=== PATIENT | female | born 1990 | race Caucasian/White ===

== ENCOUNTER 2016-07-13 08:14 | Inpatient (IN) | payer BC, MEDICAID, OTHER ==
[2016-07-05 10:57] VITALS: BMI 34.7
[2016-07-13] MEDS ORDERED: CITRIC ACID-SODIUM CITRATE 15 ML CUP PO ONE (08:28)
[2016-07-13] MEDS ORDERED: LACTATED RINGERS 1,000 ML IV ONE (08:28)
[2016-07-13] MEDS ORDERED: ceFAZolin 2 GM in SODIUM CHLORIDE 0.9% 100 ML IVPB ONE (08:28)
[2016-07-13 08:56] LABS: Basophils % (A) 0 %; CH 26.9; CHCM 33.6; Eosinophils # (A) 0.1 k/uL (0-0.7); Eosinophils % (A) 1 %; HCT 32.6 % (34.0-46.0); HDW 3.36; HGB 10.9 gm/dL (11.4-16.0); Luc # (Auto) 0.21; Luc % (Auto) 2; Lymphocytes # (A) 1.5 k/uL (1.0-4.8); Lymphocytes % (A) 15 %; MCH 26.9 pg (25.0-35.0); MCHC 33.3 g/dL (31.0-37.0); MCV 80.6 fL (80.0-100.0); Mean Platelet Volume 7.2; Monocytes # (A) 0.4 k/uL (0-1.0); Monocytes % (A) 4 %; Neutrophils # (A) 7.4 k/uL (1.3-7.7); Neutrophils % (A) 77 %; RBC 4.05 m/uL (3.80-5.40); RDW 14.7 % (11.5-15.5); WBC 9.7 k/uL (3.8-10.6); WBC (Perox) 10.76
[2016-07-13] MEDS ORDERED: OXYTOCIN 10 UNIT/ML 1 ML VIAL IM ONE (10:03)
[2016-07-13] MEDS ORDERED: MORPHINE SULFATE (PF) 0.3 MG/0.3 ML SYR ONE (10:03)
[2016-07-13] MEDS ORDERED: LACTATED RINGERS 1,000 ML BAG IV ONE (10:03)
[2016-07-13] MEDS ORDERED: NALBUPHINE 10 MG/ML AMPUL ONE (10:03)
[2016-07-13] MEDS ORDERED: Acetaminophen-Codeine 300-30mg TAB PO PRN (10:56)
[2016-07-13] MEDS ORDERED: diphenhydrAMINE 50 MG/ML 1 ML VIAL IVP PRN ×3 (10:56→16:05)
[2016-07-13] MEDS ORDERED: ACETAMINOPHEN TAB 325 MG TAB PO PRN (10:56)
[2016-07-13] MEDS ORDERED: METOCLOPRAMIDE 5 MG/ML 2 ML VIAL IVP PRN (10:56)
[2016-07-13] MEDS ORDERED: diphenhydrAMINE 50 MG CAP PO PRN (10:56)
[2016-07-13] MEDS ORDERED: SIMETHICONE 80 MG CHEWABLE PO PRN (10:56)
[2016-07-13] MEDS ORDERED: LANOLIN CREAM 5 GM TUBE TOPICAL PRN (10:56)
[2016-07-13] MEDS ORDERED: ZOLPIDEM 5 MG TAB PO PRN (10:56)
[2016-07-13] MEDS ORDERED: diphenhydrAMINE 25 MG CAP PO PRN (10:56)
--- NOTE | 2016-07-13 11:02 | P.HPOB ---
History of Present Illness H&P Date: 07/13/16 Chief Complaint: 39+ weeks, previous section, requesting repeat The patient is a 26-year-old 2 para 1001 admitted at 39 and one sevenths as established by last menstrual period and confirmed by 19 week ultrasound. She is admitted with history of her previous section requesting repeat low transverse section with intraoperative bilateral tubal occlusion with Filshie clips. She has signed consent to this in the office. Her has been entirely uncomplicated and group B strep status is negative. On admission, all signs reassuring. Obstetrical history 2 para 1001 with 1 term section for nonreassuring heart tones. Current statistics are listed in history present illness. EDC of 07/19/2016 was established by last menstrual period and confirmed by 19 week ultrasound. Laboratory workup demonstrates a blood type of A+ with a negative antibody screen. Rubella status is immune. All other laboratory workup was within normal limits. Early Glucola as well as second trimester Glucola were within normal limits. Group B strep status is negative. Gynecologic history is unremarkable with no history of any infections to include STDs. Review of Systems Review of systems is confined to history of present illness. Past Medical History Past Medical History: No Reported History Additional Past Medical History / Comment(s): Possible history of sleep apnea, unconfirmed History of Any Multi-Drug Resistant Organisms: None Reported Past Surgical History: Section, Cholecystectomy Additional Past Surgical History / Comment(s): Left eye surgery as a child x2, wisdom teeth extraction age 18 Past Anesthesia/Blood Transfusion Reactions: No Reported Reaction Past Psychological History: No Psychological Hx Reported Smoking Status: Never smoker Past Alcohol Use History: None Reported Past Drug Use History: None Reported - Past Family History Mother History Unknown: Yes Family Medical History: No Reported History Medications and Allergies Home Medications Medication Instructions Recorded Confirmed Type Pnv with Ca,No.72/Iron/FA 1 tab PO ONCE 05/30/16 07/05/16 History [ Plus Tablet] Allergies Allergy/AdvReac Type Severity Reaction Status Date / Time No Known Allergies Allergy Verified 07/05/16 10:49 Exam - Vital Signs Vital signs: Vital Signs Temp Pulse Resp BP Pulse Ox 07/13/16 08:19 97.2 F L 81 17 120/72 97 Intake and Output 07/12/16 07/13/16 07/13/16 22:59 06:59 14:59 Other: Weight 97.522 kg Patient Weight 07/14/16 06:59 Weight 97.522 kg In general, this is a well-developed, well-nourished white female in no acute distress. Her heart has a regular rhythm and rate without murmur. Her lungs are clear to auscultation bilaterally in all mauro. Her abdomen is gravid, nondistended, has normal active bowel sounds, is soft, nontender, and without any palpable masses aside from uterine fundus. Her extremities are without any cyanosis, clubbing, or significant edema and are nontender to palpation bilaterally. Digital cervical examination is deferred. Results Result Diagrams: 07/13/16 08:39 Abnormal Lab Results - Last 24 Hours (Table) 07/13/16 Range/Units 08:39 Hgb 10.9 L (11.4-16.0) gm/dL Hct 32.6 L (34.0-46.0) % Assessment and Plan (1) Family planning Status: Acute (2) Previous section Status: Acute (3) Term Status: Acute Plan: The patient is admitted for repeat low transverse section with intraoperative bilateral tubal occlusion using Filshie clips. The risks and complications of the procedures of been thoroughly discussed including the risk of permanent sterilization to included permanent nature as well as failure rate and risk for ectopic . She has understood all this and agreed to proceed and signed consent to that effect in the office as well.
--- NOTE | 2016-07-13 11:08 | P.OP ---
Date of Procedure: 07/13/16 Preoperative Diagnosis: #1. 39 and one sevenths weeks intrauterine #2. Previous section, declining vaginal trial of labor #3. Undesired fertility Postoperative Diagnosis: Same Procedure(s) Performed: #1. Repeat low transverse section #2. Intraoperative bilateral tubal occlusion using Filshie clips Anesthesia: spinal Surgeon: Johan Cooper Reporting Process Consultant #1: Esther Alfonso Estimated Blood Loss (ml): 400 IV fluids (ml): 500 Urine output (ml): 100 Pathology: other (Placenta) Condition: stable Disposition: floor Operative Findings: The patient was taken the operating room where she was delivered of a viable 8 lbs. 8 oz. baby girl with Apgars of 9 at 1 minute and 9 at 5 minutes delivered in the right occiput anterior position. The placenta was delivered manually, intact, and grossly normal with a grossly normal three-vessel cord. The uterus , tubes, and ovaries were entirely normal to inspection though there was some moderate vascularity in the area underneath the fallopian tubes. There was mild scarring through the fascial layers with minimal intra-abdominal scarring. Description of Procedure: The patient was prepped and draped in usual fashion after spinal anesthesia was administered by the anesthesiologist. A Pfannenstiel incision was made through pre-existing scar and extended into the abdominal cavity without difficulty. Bladder peritoneum was distal from the area of operation and was left intact. A 2 cm incision was made in the transverse plane of the lower uterine segment to enter the uterus at which time clear fluid was noted. The incision was extended in both directions using the bandage scissors. The head was delivered up and through the incision where the nose and mouth were thoroughly suctioned. The remainder of the was delivered onto the field allowing the cord to be doubly clamped, cut, and the passed for resuscitative measures with weight and Apgars as noted above. A segment of cord was then doubly clamped, cut, and set aside should cord gases become necessary. The placenta was delivered manually and intact as noted above. The uterus was exteriorized and the interior cavity of the uterus swept of any remaining placental or membranous fragments. The margins of the incision were grasped with Zavaleta clamps and the incision closed in a single running locking stitch of 0 chromic catgut. Hemostasis appeared to be excellent. The posterior cul-de-sac was then suctioned using a guard and attention was turned to the fallopian tubes. The uterine and ovarian findings were normal as noted above. A Filshie clip was placed firmly across each fallopian tube approximately 2-3 cm from the cornu on each side ensuring complete occlusion of each fallopian tube. The uterus was replaced within the abdominal cavity and the gutters were swept of any remaining blood, fluid, or clot. The incision was reexamined and one small point of bleeding in the midsection was made hemostatic with the Bovie and a szvigr-je-hwznc stitch of 0 chromic catgut. Once hemostasis was adequate, the parietal peritoneum was loosely reapproximated in the layer of muscles were loosely reapproximated with a loose qfksha-jq-wyrym stitch of 0 chromic catgut. The layer of muscles were examined and made hemostatic with the Bovie. The fascia was closed with 2 running stitches of 0 Vicryl proceeding from lateral margins to the midpoint. The subcutaneous tissues were irrigated, made hemostatic with the Bovie, and reapproximated with a running stitch of 30 plain catgut. The skin was reapproximated with a running subcuticular stitch of 4-0 Vicryl followed by half -inch Steri-Strips placed with Mastisol. Estimated blood loss for the case is roughly 400 mL. There were no complications. All sponge, instrument, and needle counts were correct. Both mother and infant are resting comfortably in recovery.
[2016-07-13] MEDS ORDERED: ONDANSETRON 4 MG/2 ML VIAL IVP PRN (16:05)
[2016-07-13] MEDS ORDERED: NALOXONE 0.4 MG/ML 1 ML VIAL IV PRN (16:05)
[2016-07-13] MEDS ORDERED: NALBUPHINE 10 MG/ML AMPUL IV PRN (16:05)
[2016-07-13] MEDS ORDERED: MORPHINE SULFATE 4 MG/ML SYRINGE IVP PRN (16:05)
[2016-07-13] MEDS: KETOROLAC 30 MG/ML 1 ML VIAL IVP PRN (21:01)
[2016-07-13] MEDS: SENNOSIDES-DOCUSATE SODIUM 1 EACH TAB PO SCH (21:03)
--- NOTE | 2016-07-14 07:40 | P.PNOBGPC ---
Subjective - Subjective Principal diagnosis: Postoperative day 1 Patient reports: Reports appetite normal, Reports voiding normally, Reports pain well controlled, Reports ambulating normally, Denies dizzy ambulation, Denies nauseated [place]: doing well Objective - Vital Signs Latest vital signs: Vital Signs Temp Pulse Resp BP Pulse Ox 07/14/16 04:00 98.1 F 64 14 112/46 07/13/16 22:00 97 F L 87 14 113/74 07/13/16 20:46 97.8 F 71 12 121/66 07/13/16 16:05 97.7 F 74 17 119/72 97 07/13/16 12:56 74 16 109/55 99 07/13/16 12:26 76 17 141/73 99 07/13/16 11:52 73 17 133/63 97 07/13/16 11:37 80 17 136/62 97 07/13/16 11:25 76 16 117/57 98 07/13/16 11:08 79 16 116/56 98 07/13/16 10:56 96.0 F L 84 17 129/61 97 07/13/16 08:19 97.2 F L 81 17 120/72 97 Intake and Output 07/13/16 07/14/16 07/14/16 22:59 06:59 14:59 Intake Total 8 Output Total 700 Balance -692 Intake: IV 8 Invasive Line 1 8 Output: Urine 700 Uretheral (Mcnamara) 300 - Exam Extremities: Present: normal, edema. Absent: tenderness Abdomen: Present: normal appearance (Obese), soft. Absent: tenderness Incision: Present: normal, dry, intact. Absent: erythematous Uterus: Present: normal. Absent: tenderness - Labs Labs: Abnormal Lab Results - Last 24 Hours (Table) 07/13/16 Range/Units 08:39 Hgb 10.9 L (11.4-16.0) gm/dL Hct 32.6 L (34.0-46.0) % Assessment and Plan (1) Family planning Current Visit: Yes Status: Acute Code(s): Z30.09 - ENCOUNTER FOR OTH GENERAL CNSL AND ADVICE ON CONTRACEPTION SNOMED Code(s): 98603323 (2) Previous section Current Visit: Yes Status: Acute Code(s): Z98.891 - HISTORY OF UTERINE SCAR FROM PREVIOUS SURGERY SNOMED Code(s): 442012575 (3) S/P section Narrative/Plan: Postop day 1 status post repeat low transverse section and bilateral tubal ligation. Labs are pending. We reviewed oral pain medication use. Routine care. Current Visit: Yes Status: Acute Code(s): Z98.89 - OTHER SPECIFIED POSTPROCEDURAL STATES * DO NOT USE * SNOMED Code(s): 237943047 (4) Term Current Visit: Yes Status: Acute Code(s): Z34.80 - ENCOUNTER FOR SUPRVSN OF NORMAL , UNSP TRIMESTER SNOMED Code(s): 21223001
[2016-07-14 08:14] LABS: Basophils % (A) 0 %; CH 27.5; Eosinophils # (A) 0.1 k/uL (0-0.7); Eosinophils % (A) 1 %; HCT 30.2 % (34.0-46.0); HDW 3.34; HGB 9.9 gm/dL (11.4-16.0); Luc # (Auto) 0.16; Luc % (Auto) 1; Lymphocytes # (A) 1.7 k/uL (1.0-4.8); Lymphocytes % (A) 15 %; MCH 26.5 pg (25.0-35.0); MCHC 32.7 g/dL (31.0-37.0); MCV 81.2 fL (80.0-100.0); Mean Platelet Volume 7.6; Monocytes # (A) 0.7 k/uL (0-1.0); Monocytes % (A) 6 %; Neutrophils # (A) 9.1 k/uL (1.3-7.7); Neutrophils % (A) 77 %; RBC 3.72 m/uL (3.80-5.40); RDW 14.7 % (11.5-15.5); WBC 11.8 k/uL (3.8-10.6); WBC (Perox) 12.47
[2016-07-14] MEDS: SENNOSIDES-DOCUSATE SODIUM 1 EACH TAB PO SCH ×2 (08:36→20:05)
[2016-07-14] MEDS: KETOROLAC 30 MG/ML 1 ML VIAL IVP PRN (08:36)
[2016-07-14] MEDS: IBUPROFEN 600 MG TAB PO PRN (18:53)
[2016-07-14] MEDS: LACTATED RINGERS 1,000 ML IV SCH ×4 (20:31→20:33)
[2016-07-14] MEDS: OXYTOCIN 30 UNITS/500 ML NS 30 UNIT in SALINE 1 500ML.BAG IV SCH ×2 (20:33→20:34)
[2016-07-15] MEDS: Acetaminophen-Codeine 300-30mg TAB PO PRN ×4 (02:07→23:51)
[2016-07-15] MEDS: SENNOSIDES-DOCUSATE SODIUM 1 EACH TAB PO SCH ×2 (08:09→19:35)
--- NOTE | 2016-07-15 11:22 | P.PN ---
Progress Note - Text Postop day 2 from under spinal anesthesia with intrathecal morphine given for postop pain management. Patient is doing well. Pain is well controlled. On visual analog scale 1/10 Mild itching yesterday, none today. He had nausea yesterday but not today. No Headache or weakness and numbness in the legs. No complications from spinal anesthesia.
[2016-07-15] MEDS: IBUPROFEN 600 MG TAB PO PRN (19:35)
[2016-07-16] MEDS: IBUPROFEN 600 MG TAB PO PRN (06:16)
[2016-07-16] MEDS: SENNOSIDES-DOCUSATE SODIUM 1 EACH TAB PO SCH (08:26)
[2016-07-16 08:28] VITALS: BP 136/64; PULSE 72; RESP 16; TEMP 97.4
--- NOTE | 2016-07-16 09:45 | P.PNOBGPC ---
Subjective - Subjective Principal diagnosis: Late entry from 07/15/2016, postop day 2 Interval history: Patient was seen on 07/15/2016 however no does not appear to be saved into the computer system. She is postop day 2 and complaining of some ongoing pain and trepidation regarding discharge home. Patient reports: Reports appetite normal, Reports voiding normally, Reports pain well controlled, Reports ambulating normally, Denies nauseated : doing well Objective - Vital Signs Latest vital signs: Vital Signs Temp Pulse Resp BP Pulse Ox 07/16/16 08:00 97.4 F L 72 16 136/64 07/15/16 23:43 98.3 F 76 18 130/75 98 07/15/16 16:00 98.2 F 81 16 137/78 99 - Exam Extremities: Present: normal Abdomen: Present: normal appearance, soft, tenderness Incision: Present: normal, dry, intact Uterus: Present: normal, firm Assessment and Plan (1) Family planning Current Visit: Yes Status: Acute Code(s): Z30.09 - ENCOUNTER FOR OT GENERAL CNSL AND ADVICE ON CONTRACEPTION SNOMED Code(s): 54863959 (2) Previous section Current Visit: Yes Status: Acute Code(s): Z98.891 - HISTORY OF UTERINE SCAR FROM PREVIOUS SURGERY SNOMED Code(s): 331265478 (3) S/P section Narrative/Plan: Late entry from 07/15/2016, postop day 2. Reviewed the scheduled oral pain medication use every 4 hours. Anticipate discharge home tomorrow. Current Visit: Yes Status: Acute Code(s): Z98.89 - OTHER SPECIFIED POSTPROCEDURAL STATES * DO NOT USE * SNOMED Code(s): 640806387 (4) Term Current Visit: Yes Status: Acute Code(s): Z34.80 - ENCOUNTER FOR SUPRVSN OF NORMAL , UNSP TRIMESTER SNOMED Code(s): 78316604
--- NOTE | 2016-07-16 09:55 | P.DS ---
Providers Date of admission: 07/13/16 08:14 Expected date of discharge: 07/16/16 Attending physician: Johan Cooper Primary care physician: Stated None - Discharge Diagnosis(es) (1) Family planning Current Visit: Yes Status: Acute (2) Previous section Current Visit: Yes Status: Acute (3) S/P section Current Visit: Yes Status: Acute (4) Term Current Visit: Yes Status: Acute Hospital Course: This is a 26-year-old 2 now para 2 woman who is admitted at 39 and one sevenths weeks gestation for repeat low transverse section and bilateral tubal ligation. Please see the admission history and physical and operative report for details. The patient's repeat and tubal ligation were unremarkable. Her postoperative course was unremarkable. By postoperative day #1 she was ambulating and voiding without difficulty with a Mcnamara catheter removed. Her postoperative hemoglobin was stable and her lochia was minimal. By postoperative day #2 she was having some difficulty with pain control and her incision otherwise was healing well and her vital signs were stable. By postoperative day #3 she was discharged home with routine instructions for care and follow-up. Procedures: Repeat low transverse section and bilateral tubal ligation Patient Condition at Discharge: Good Plan - Discharge Summary New Discharge Prescriptions: Acetaminophen-Codeine 300-30mg [Tylenol w/codeine #3] 1 each PO Q4HR PRN #30 tab PRN Reason: Mild Pain Discharge Medication List Pnv with Ca,No.72/Iron/FA [ Plus Tablet] 1 tab PO ONCE 05/30/16 [History ] Acetaminophen-Codeine 300-30mg [Tylenol w/codeine #3] 1 each PO Q4HR PRN #30 tab 07/16/16 [Rx] Ibuprofen [Motrin] 600 mg PO Q6HR PRN #0 tab 07/16/16 [Rx] Follow up Appointment(s)/Referral(s): Johan Cooper MD [STAFF PHYSICIAN] - 2 Weeks Patient Instructions/Handouts: (DC) Activity/Diet/Wound Care/Special Instructions: Follow-up in 2 weeks after surgery in the office. Call the office with any concerning signs or symptoms including fever greater than 101, severe abdominal pain, heavy vaginal bleeding, signs of wound infection, increased swelling or redness of the lower extremities, signs of depression. No driving for 2 weeks after surgery. No heavy lifting or vigorous activity until reevaluated in the office. No intercourse for 6 weeks after delivery. Discharge Disposition: HOME SELF-CARE
== END 2016-07-16 13:40 | disposition home or self-care (01) | DRG 766 ==
LOC: 4FBP 08:14
PROVIDERS: ADMIT Obstetrics & Gynecology; ATTEND Obstetrics & Gynecology
DX: O34.211 Maternal care for low transverse scar from previous cesarean delivery (principal); Z30.2 Encounter for sterilization; Z37.0 Single live birth; Z3A.39 39 weeks gestation of pregnancy
CPT/HCPCS: 85025; 86850; 86900; 86901; 88307

== ENCOUNTER 2017-02-19 16:55 | Emergency (ER) | payer BC ==
[2017-02-19] MEDS ORDERED: SODIUM CHLORIDE 0.9% 1,000 ML IV STA (17:14)
[2017-02-19] MEDS ORDERED: SODIUM CHLORIDE 0.9% 500 ML IV STA (17:14)
--- NOTE | 2017-02-19 17:23 | ED ---
Nausea/Vomiting/Diarrhea HPI - General Chief complaint: Nausea/Vomiting/Diarrhea Stated complaint: Dizziness, Vomiting Time Seen by Provider: 02/19/17 17:06 Source: patient, RN notes reviewed Mode of arrival: ambulatory Limitations: no limitations - History of Present Illness Initial comments: 27-year-old female presents emergency Department with chief complaint of nausea vomiting diarrhea. Patient states she started with diarrhea yesterday and has turned into nausea vomiting today. She states that she feels slightly improved at this time but states that she was concerned when she donated plasma yesterday and she got home she removed the bandage and noticed there is some blood and felt slightly dizzy and faint. Patient states that she took a cold shower to nap and felt better. Patient states that they told her she had a blood loss at the plasma donation center. She states she was not sure what this meant though she had 2 needles in her yesterday which is abnormal for her. She states she normally donates and regular basis on Saturday and Saturday. Patient states that she was at work and which she works at [employer] states that her heart rate was in the 130s and felt slightly dizzy. Patient states that her blood pressure was fine. Patient denies any chance no dysuria no hematuria no fever or chills. She does complain of feeling achy in her upper arms and body region - Related Data Previous Rx's Medication Instructions Recorded Ondansetron Odt [Zofran Odt] 4 mg PO Q8HR PRN #10 tab 02/19/17 Allergies Allergy/AdvReac Type Severity Reaction Status Date / Time No Known Allergies Allergy Verified 02/19/17 17:02 Review of Systems ROS Statement: Those systems with pertinent positive or pertinent negative responses have been documented in the HPI. ROS Other: All systems not noted in ROS Statement are negative. Past Medical History Past Medical History: No Reported History Additional Past Medical History / Comment(s): Possible history of sleep apnea, unconfirmed History of Any Multi-Drug Resistant Organisms: None Reported Past Surgical History: Section, Cholecystectomy Additional Past Surgical History / Comment(s): Left eye surgery as a child x2, wisdom teeth extraction age 18 Past Anesthesia/Blood Transfusion Reactions: No Reported Reaction Past Psychological History: No Psychological Hx Reported Smoking Status: Never smoker Past Alcohol Use History: None Reported Past Drug Use History: None Reported - Past Family History Mother History Unknown: Yes Family Medical History: No Reported History General Exam Limitations: no limitations General appearance: alert, in no apparent distress Head exam: Present: atraumatic, normocephalic, normal inspection Eye exam: Present: normal appearance, PERRL, EOMI. Absent: scleral icterus, conjunctival injection, periorbital swelling ENT exam: Present: normal exam, mucous membranes moist Respiratory exam: Present: normal lung sounds bilaterally. Absent: respiratory distress, wheezes, rales, rhonchi, stridor Cardiovascular Exam: Present: regular rate, normal rhythm, normal heart sounds. Absent: systolic murmur, diastolic murmur, rubs, gallop, clicks GI/Abdominal exam: Present: soft, normal bowel sounds. Absent: distended, tenderness, guarding, rebound, rigid Neurological exam: Present: alert, oriented X3, CN II-XII intact Skin exam: Present: warm, dry, intact, normal color. Absent: rash Course Vital Signs 02/19/17 02/19/17 16:59 17:50 Temperature 98.0 F Pulse Rate 100 Pulse Rate [ 90 Right Sitting] Pulse Rate [ 104 H Right Standing] Pulse Rate [ 82 Right Supine] Respiratory 18 16 Rate Blood Pressure 130/86 Blood Pressure 127/77 [Right Arm Sitting] Blood Pressure 127/73 [Right Arm Standing] Blood Pressure 118/64 [Right Arm Supine] O2 Sat by Pulse 98 98 Oximetry Medical Decision Making - Medical Decision Making 27-year-old female presented emergency from for nausea vomiting diarrhea. Patient also had a near syncopal episode yesterday. Patient lab work reveals no major acute abnormality's. Patient does feel improved after IV fluids. Patient will be discharged at this time. Patient complained of some tachycardia though her EKG is benign along with orthostatics. - Lab Data Result diagrams: 02/19/17 17:36 02/19/17 17:36 Lab Results 02/19/17 02/19/17 02/19/17 Range/Units 17:36 17:36 17:36 WBC 12.9 H (3.8-10.6) k/uL RBC 5.30 (3.80-5.40) m/uL Hgb 13.6 (11.4-16.0) gm/dL Hct 41.1 (34.0-46.0) % MCV 77.7 L (80.0-100.0) fL MCH 25.8 (25.0-35.0) pg MCHC 33.2 (31.0-37.0) g/dL RDW 15.2 (11.5-15.5) % Plt Count 362 (150-450) k/uL Neutrophils % 79 % Lymphocytes % 15 % Monocytes % 5 % Eosinophils % 0 % Basophils % 0 % Neutrophils # 10.1 H (1.3-7.7) k/uL Lymphocytes # 1.9 (1.0-4.8) k/uL Monocytes # 0.6 (0-1.0) k/uL Eosinophils # 0.0 (0-0.7) k/uL Basophils # 0.1 (0-0.2) k/uL Sodium 141 (137-145) mmol/L Potassium 3.7 (3.5-5.1) mmol/L Chloride 109 H (98-107) mmol/L Carbon Dioxide 20 L (22-30) mmol/L Anion Gap 12 mmol/L BUN 12 (7-17) mg/dL Creatinine 0.80 (0.52-1.04) mg/dL Est GFR (MDRD) Af Amer >60 (>60 ml/min/1.73 sqM) Est GFR (MDRD) Non-Af >60 (>60 ml/min/1.73 sqM) Glucose 92 (74-99) mg/dL Calcium 9.3 (8.4-10.2) mg/dL Total Bilirubin 0.4 (0.2-1.3) mg/dL AST 21 (14-36) U/L ALT 31 (9-52) U/L Alkaline Phosphatase 60 (38-126) U/L Total Protein 6.9 (6.3-8.2) g/dL Albumin 4.1 (3.5-5.0) g/dL Amylase 36 (30-110) U/L Lipase 49 (23-300) U/L Urine Color Urine Appearance (Clear) Urine pH (5.0-8.0) Ur Specific [place] (1.001-1.035) Urine Protein (Negative) Urine Glucose (UA) (Negative) Urine Ketones (Negative) Urine Blood (Negative) Urine Nitrite (Negative) Urine Bilirubin (Negative) Urine Urobilinogen (<2.0) mg/dL Ur Leukocyte Esterase (Negative) Urine RBC (0-5) /hpf Amorphous Sediment (None) /hpf Urine Mucus (None) /hpf Urine HCG, Qual Not Detected (Not Detectd) 02/19/17 Range/Units 17:36 WBC (3.8-10.6) k/uL RBC (3.80-5.40) m/uL Hgb (11.4-16.0) gm/dL Hct (34.0-46.0) % MCV (80.0-100.0) fL MCH (25.0-35.0) pg MCHC (31.0-37.0) g/dL RDW (11.5-15.5) % Plt Count (150-450) k/uL Neutrophils % % Lymphocytes % % Monocytes % % Eosinophils % % Basophils % % Neutrophils # (1.3-7.7) k/uL Lymphocytes # (1.0-4.8) k/uL Monocytes # (0-1.0) k/uL Eosinophils # (0-0.7) k/uL Basophils # (0-0.2) k/uL Sodium (137-145) mmol/L Potassium (3.5-5.1) mmol/L Chloride (98-107) mmol/L Carbon Dioxide (22-30) mmol/L Anion Gap mmol/L BUN (7-17) mg/dL Creatinine (0.52-1.04) mg/dL Est GFR (MDRD) Af Amer (>60 ml/min/1.73 sqM) Est GFR (MDRD) Non-Af (>60 ml/min/1.73 sqM) Glucose (74-99) mg/dL Calcium (8.4-10.2) mg/dL Total Bilirubin (0.2-1.3) mg/dL AST (14-36) U/L ALT (9-52) U/L Alkaline Phosphatase (38-126) U/L Total Protein (6.3-8.2) g/dL Albumin (3.5-5.0) g/dL Amylase (30-110) U/L Lipase (23-300) U/L Urine Color Yellow Urine Appearance Turbid H (Clear) Urine pH 5.5 (5.0-8.0) Ur Specific [place] 1.031 (1.001-1.035) Urine Protein 1+ H (Negative) Urine Glucose (UA) Negative (Negative) Urine Ketones Negative (Negative) Urine Blood Negative (Negative) Urine Nitrite Negative (Negative) Urine Bilirubin Negative (Negative) Urine Urobilinogen 2.0 (<2.0) mg/dL Ur Leukocyte Esterase Negative (Negative) Urine RBC 22 H (0-5) /hpf Amorphous Sediment Occasional H (None) /hpf Urine Mucus Many H (None) /hpf Urine HCG, Qual (Not Detectd) 02/19/17 18:29 EKG performed at 17:40 normal sinus rhythm with a rate of 87 MD interval 150 QS duration 98 QT/QTC 374/450 Disposition Clinical Impression: Gastroenteritis, Near syncope Disposition: HOME SELF-CARE Condition: Stable Instructions: Acute Nausea and Vomiting (ED) Additional Instructions: Please return to the Emergency Department if symptoms worsen or any other concerns. Prescriptions: Ondansetron Odt [Zofran Odt] 4 mg PO Q8HR PRN #10 tab PRN Reason: Nausea Referrals: None,Stated [Primary Care Provider] - 1-2 days
[2017-02-19 17:41] LABS: Basophils # (A) 0.1 k/uL (0-0.2); Basophils % (A) 0 %; CH 26.2; CHCM 33.9; Eosinophils % (A) 0 %; HCT 41.1 % (34.0-46.0); HDW 3.06; HGB 13.6 gm/dL (11.4-16.0); Luc # (Auto) 0.17; Luc % (Auto) 1; Lymphocytes # (A) 1.9 k/uL (1.0-4.8); Lymphocytes % (A) 15 %; MCH 25.8 pg (25.0-35.0); MCHC 33.2 g/dL (31.0-37.0); MCV 77.7 fL (80.0-100.0); Mean Platelet Volume 7.3; Monocytes # (A) 0.6 k/uL (0-1.0); Monocytes % (A) 5 %; Neutrophils # (A) 10.1 k/uL (1.3-7.7); Neutrophils % (A) 79 %; RDW 15.2 % (11.5-15.5); WBC 12.9 k/uL (3.8-10.6); WBC (Perox) 13.12
[2017-02-19 17:51] LABS: Amorphous Sediment,Urine Occasional /hpf; Appearance,Urine Turbid (Clear); Bilirubin,Urine Negative (Negative); Glucose,Urine (UA) Negative (Negative); Ketones,Urine Negative (Negative); Leukocyte Esterase,Urine Negative (Negative); Mucus,Urine Many /hpf; Nitrite,Urine Negative (Negative); PH, Urine 5.5 (5.0-8.0); Particle Count 42443; Protein,Urine 1+ (Negative); RBC,Urine 22 /hpf (0-5); Specific Gravity,Urine 1.031 (1.001-1.035); UA Billing (MACRO vs. MICRO) MICRO
[2017-02-19 17:54] LABS: ALT 31 U/L (9-52); AST 21 U/L (14-36); Alkaline Phosphatase 60 U/L (38-126); Amylase 36 U/L (30-110); Anion Gap 12 mmol/L; Blood Urea Nitrogen 12 mg/dL (7-17); Calcium 9.3 mg/dL (8.4-10.2); Carbon Dioxide 20 mmol/L (22-30); Chloride 109 mmol/L (98-107); Glucose 92 mg/dL (74-99); Non-African American GFR(MDRD) >60 (>60 ml/min/1.73 sqM); Potassium 3.7 mmol/L (3.5-5.1); Sodium 141 mmol/L (137-145); Total Bilirubin 0.4 mg/dL (0.2-1.3); Total Protein 6.9 g/dL (6.3-8.2)
[2017-02-19 18:40] VITALS: BP 118/71; PULSE 93; RESP 18; TEMP 98.4
== END 2017-02-19 18:40 | disposition home or self-care (01) ==
LOC: EC 16:55
DX: K52.9 Noninfective gastroenteritis and colitis, unspecified (principal); R55 Syncope and collapse; R42 Dizziness and giddiness; Z90.49 Acquired absence of other specified parts of digestive tract
CPT/HCPCS: 36415; 80053; 81001; 81025; 82150; 83690; 85025; 93005; 96360; 99284

== ENCOUNTER 2017-07-16 20:47 | Emergency (ER) | payer SELFPAY ==
--- NOTE | 2017-07-16 21:53 | ED ---
Anxiety HPI - General Chief Complaint: Anxiety Stated Complaint: Anxiety Time Seen by Provider: 07/16/17 21:17 Source: patient, EMS, RN notes reviewed Mode of arrival: EMS - History of Present Illness Initial Comments: This is a 27-year-old female who presented by EMS with complaints of some chest pain in being very anxious. She apparently is in a custody schultz with her significant other over children this is caused great stress apparently recently patient had some chest tightness midsternal additionally she felt very anxious and had shortness of breath. This is all since resolved she states except for the tightness. The tightness is worse with movements and deep breathing. Patient is a nonsmoker is no history of heart or lung disease. No trauma. MD Complaint: anxiety, other - Related Data Home Medications: Previous Rx's Medication Instructions Recorded Ibuprofen [Motrin] 600 mg PO Q6HR PRN #20 tab 07/16/17 Allergies/Adverse Reactions: Allergies Allergy/AdvReac Type Severity Reaction Status Date / Time No Known Allergies Allergy Verified 07/16/17 21:25 Review of Systems ROS Statement: Those systems with pertinent positive or pertinent negative responses have been documented in the HPI. ROS Other: All systems not noted in ROS Statement are negative. Past Medical History Past Medical History: No Reported History Additional Past Medical History / Comment(s): Possible history of sleep apnea, unconfirmed History of Any Multi-Drug Resistant Organisms: None Reported Past Surgical History: Section, Cholecystectomy Additional Past Surgical History / Comment(s): Left eye surgery as a child x2, wisdom teeth extraction age 18 Past Anesthesia/Blood Transfusion Reactions: No Reported Reaction Past Psychological History: No Psychological Hx Reported Smoking Status: Never smoker Past Alcohol Use History: None Reported Past Drug Use History: None Reported - Past Family History Mother History Unknown: Yes Family Medical History: No Reported History General Exam - General Exam Comments Initial Comments: This is a well-developed well-nourished awake alert oriented 3 female Limitations: no limitations General appearance: alert, in no apparent distress Head exam: Present: atraumatic, normocephalic, normal inspection Eye exam: Present: normal appearance, PERRL, EOMI. Absent: scleral icterus, conjunctival injection, periorbital swelling ENT exam: Present: normal exam, mucous membranes moist Neck exam: Present: normal inspection. Absent: tenderness, meningismus, lymphadenopathy Respiratory exam: Present: normal lung sounds bilaterally, chest wall tenderness. Absent: respiratory distress, wheezes, rales, rhonchi, stridor Cardiovascular Exam: Present: regular rate, normal rhythm, normal heart sounds. Absent: systolic murmur, diastolic murmur, rubs, gallop, clicks GI/Abdominal exam: Present: soft, normal bowel sounds. Absent: distended, tenderness, guarding, rebound, rigid Extremities exam: Present: normal inspection, full ROM, normal capillary refill. Absent: tenderness, pedal edema, joint swelling, calf tenderness Back exam: Present: normal inspection Neurological exam: Present: alert, oriented X3, CN II-XII intact Psychiatric exam: Present: normal affect, normal mood Skin exam: Present: warm, dry, intact, normal color. Absent: rash Course Vital Signs 07/16/17 21:07 Temperature 97.2 F L Pulse Rate 96 Respiratory 18 Rate Blood Pressure 129/72 O2 Sat by Pulse 100 Oximetry Medical Decision Making - Medical Decision Making After long discussion with the patient no further workup was indicated this time. Patient will be discharged he was recommended that she use nostril anti- inflammatories presentation is consistent with costochondritis. Also anxiety. - EKG Data EKG shows normal: sinus rhythm, axis, intervals, QRS complexes, ST-T waves ( Normal sinus rhythm with a rate of 64. Interval 156 QRS duration 102 QT since QTC of 414/427 this is normal. EKG.) Rate: normal Disposition Clinical Impression: Acute anxiety, Costochondritis, acute Disposition: HOME SELF-CARE Condition: Good Instructions: Generalized Anxiety Disorder (ED), Costochondritis (ED) Prescriptions: Ibuprofen [Motrin] 600 mg PO Q6HR PRN #20 tab PRN Reason: Pain Referrals: None,Stated [Primary Care Provider] - 1-2 days
[2017-07-16 22:14] VITALS: BP 124/67; PULSE 66; RESP 20; TEMP 97.3
== END 2017-07-16 22:31 | disposition home or self-care (01) ==
LOC: EC 20:47
DX: F41.9 Anxiety disorder, unspecified (principal); M94.0 Chondrocostal junction syndrome [Tietze]
CPT/HCPCS: 93005; 99283

== ENCOUNTER 2020-04-01 18:35 | Emergency (ER) | payer OTHER ==
[2020-04-01 18:44] VITALS: BP 142/83; PULSE 100; RESP 20; TEMP 97.8
--- NOTE | 2020-04-01 19:07 | ED ---
General Adult HPI - General Chief complaint: Extremity Injury, Lower Stated complaint: ankle pain Time Seen by Provider: 04/01/20 18:46 Source: patient, RN notes reviewed, old records reviewed Mode of arrival: ambulatory Limitations: no limitations - History of Present Illness Initial comments: 30-year-old female patient presents to ED for evaluation of foot injury. Patient reports that she had a fall and ankle sprain earlier this morning before work. Patient was that she was stepping down a To her backyard when her daughter was in front of her and she attempted to stop when she stepped forward she rolled her left ankle has been having left ankle and foot pain throughout the day. Patient did fall on her left side. Patient did work today and was ambulatory however she works at a doctor's office and they ordered an outpatient x-ray for her which displayed anterior calcaneus fracture. Denies any other injury, denies any trauma to head or neck. Denies any other complaints. Systemic: Pt denies fatigue, fever/chills, rash. Pt denies weakness, night sweats, weight loss. Neuro: Pt denies headache, visual disturbances, syncope or pre-syncope. HEENT: Pt denies ocular discharge or irritation, otalgia, rhinorrhea, pharyngitis or notable lymphadenopathy. Cardiopulmonary: Pt denies chest pain, SOB, heart palpitations, dyspnea on exertion. Abdominal/GI: Pt denies abdominal pain, n/v/d. : Pt denies dysuria, burning w/ urination, frequency/urgency. Denies new onset urinary or bowel incontinence. Neuro: Pt denies new onset weakness, paresthesias. - Related Data Previous Rx's Medication Instructions Recorded Ibuprofen [Motrin] 600 mg PO Q6HR PRN #20 tab 07/16/17 Allergies Allergy/AdvReac Type Severity Reaction Status Date / Time No Known Allergies Allergy Verified 04/01/20 18:44 Review of Systems ROS Statement: Those systems with pertinent positive or pertinent negative responses have been documented in the HPI. ROS Other: All systems not noted in ROS Statement are negative. Past Medical History Past Medical History: No Reported History Additional Past Medical History / Comment(s): Possible history of sleep apnea, unconfirmed History of Any Multi-Drug Resistant Organisms: None Reported Past Surgical History: Section, Cholecystectomy Additional Past Surgical History / Comment(s): Left eye surgery as a child x2, wisdom teeth extraction age 18 Past Anesthesia/Blood Transfusion Reactions: No Reported Reaction Past Psychological History: No Psychological Hx Reported Smoking Status: Never smoker Past Alcohol Use History: None Reported Past Drug Use History: None Reported - Past Family History Mother History Unknown: Yes Family Medical History: No Reported History General Exam - General Exam Comments Initial Comments: Constitutional: NAD, AOX3, Pt has pleasant affect. HEENT: NC/AT, trachea midline, neck supple, no lymphadenopathy. Posterior pharynx non erythematous, without exudates. External ears appear normal, without discharge. Mucous membranes moist. Eyes PERRLA, EOM intact. There is no scleral icterus. No pallor noted. Cardiopulmonary: RRR, no murmurs, rubs or gallops, no JVD noted. Lungs CTAB in anterior and posterior mauro. No peripheral edema. Abdominal exam: Abdomen soft and non-distended. Abdomen non-tender to palpation in all 4 quadrants. Bowel sounds active in LLQ. No hepatosplenomegaly. No ecchymosis Neuro: CN II-XII grossly intact. No nuchal rigidity. MSK: Lateral malleolus lateral aspect of foot is mildly tender to palpation. Elbow dorsal foot tenderness. Distal pulses are intact and equal. Patient placed in posterior ankle splint neurovascular intact before and after splint placement. No proximal tib-fib tenderness. No posterior calf tenderness bilaterally,. Posterior tibialis and radial pulse +2 bilaterally. Sensation intact in upper and lower extremities. Full active ROM in upper and lower extremities, 5/5 stregnth. Limitations: no limitations Course Vital Signs 04/01/20 18:40 Temperature 97.8 F Pulse Rate 100 Respiratory 20 Rate Blood Pressure 142/83 O2 Sat by Pulse 100 Oximetry Medical Decision Making - Medical Decision Making 30-year-old female patient presents to ED with chief complaint of left foot/ankle injury. Patient vital signs stable, patient plain film does splay anterior calcaneus fracture. Patient placed in posterior ankle splint with provided prescription for crutches. Will be discharged with outpatient orthopedic follow up, nonweight bearing. Case discussed with Dr. Rivas. Disposition Clinical Impression: Calcaneus fracture Disposition: HOME SELF-CARE Condition: Stable Instructions (If sedation given, give patient instructions): Foot Fracture in Adults (ED) Additional Instructions: use crutches do not bear weight on left lower extremity. Follow up with PCP and orthopedic consult tomorrow. Continue to wear splint. Return to ED with any worsening symptoms. Is patient prescribed a controlled substance at d/c from ED?: No Referrals: None,Stated [Primary Care Provider] - 1-2 days Marcello Hanson DO [Doctor of Osteopathic Medicine] - 1-2 days Marcell Kirkland DO [Medical Doctor] - 1-2 days Gustavo Domínguez [STAFF PHYSICIAN] - 1-2 days
== END 2020-04-01 19:48 | disposition home or self-care (01) ==
LOC: EC 18:35
DX: S92.022A Displaced fracture of anterior process of left calcaneus, initial encounter for closed fracture (principal); X50.1XXA Overexertion from prolonged static or awkward postures, initial encounter; Y93.01 Activity, walking, marching and hiking; Y92.89 Other specified places as the place of occurrence of the external cause
CPT/HCPCS: 29515; 99283

== ENCOUNTER → 2020-04-01 | Outpatient (CLI) | payer OTHER ==
--- NOTE | 2020-04-01 18:01 | XR ---
EXAMINATION TYPE: XR foot complete LT, XR ankle complete LT DATE OF EXAM: 04/01/2020 CLINICAL HISTORY: Left sprained ankle. Rolled ankle at work today. TECHNIQUE: Frontal, lateral and oblique images of the left ankle and foot are obtained. COMPARISON: None. FINDINGS: There is a nondisplaced fracture with linear lucency of the calcaneus anterior process seen on obliqu e view of the left foot, image 2. No evidence of dislocation. There is mild swelling of the superior aspect of the midfoot. Plantar spur. Normal osseous mineralization. There is no acute fracture/dislo cation evident in the left ankle. The ankle mortise appears within normal limits. IMPRESSION: Nondisplaced fracture of the anterior process of the calcaneus. Mild swelling of the superior midfoot .
== END | disposition home or self-care (01) ==
LOC: RADXRMAIN 14:05
PROVIDERS: ATTEND Internal Medicine Cardiovascular Disease
DX: S92.025A Nondisplaced fracture of anterior process of left calcaneus, initial encounter for closed fracture (principal)

== ENCOUNTER → 2024-07-16 | Outpatient (CLI) | payer OTHER ==
--- NOTE | 2024-07-16 13:32 | US ---
EXAMINATION TYPE: US kidneys/renal and bladder DATE OF EXAM: 07/16/2024 COMPARISON: NONE CLINICAL INDICATION: Female, 34 years old with history of I10 HYPERTENSION; Pt states HTN x 1 year TECHNIQUE: Grayscale imaging of the bilateral kidneys and urinary bladder: FINDINGS: EXAM MEASUREMENTS: Right Kidney: 12.7 x 5.6 x 5.9 cm Left Kidney: 12.3 x 5.6 x 5.4 cm Right Kidney: No hydronephrosis or masses seen Left Kidney: No hydronephrosis or masses seen Bladder: Partially distended bladder shows no gross abnormality. Bilateral Jets seen: Right jet visualized Incidental echogenic hepatic parenchyma. IMPRESSION: 1. No hydronephrosis. 2. Incidental echogenic liver parenchyma suggesting at least mild hepatic steatosis. [facility], , 07/16/2024 1:30 PM
== END | disposition home or self-care (01) ==
LOC: RADUSWWP 08:49
PROVIDERS: ATTEND Family Medicine
DX: I10 Essential (primary) hypertension (principal)
CPT/HCPCS: 76770

== ENCOUNTER → 2024-09-01 | Outpatient (CLI) | payer OTHER ==
[2024-09-01 15:11] LABS: ALT 23 U/L (8-44); AST 19 U/L (13-35); Albumin 4.1 g/dL (3.8-4.9); Albumin/Globulin Ratio 1.24 Ratio (1.60-3.17); Alkaline Phosphatase 59 U/L (41-126); BUN/Creat Ratio 11.44 Ratio (12.00-20.00); Blood Urea Nitrogen 10.3 mg/dL (9.0-27.0); Calcium 9.4 mg/dL (8.7-10.3); Carbon Dioxide 24.1 mmol/L (21.6-31.8); Chloride 102 mmol/L (96-109); Globulin 3.3 g/dL (1.6-3.3); Glucose 108 mg/dL (70-110); Potassium 3.6 mmol/L (3.5-5.5); Sodium 138 mmol/L (135-145); Total Bilirubin 0.2 mg/dL (0.3-1.2); Total Protein 7.4 g/dL (6.2-8.2)
[2024-09-01 15:43] LABS: HCT 39.2 % (37.2-46.3); HGB 12.7 g/dL (12.0-15.0); MCH 24.7 pg (27.0-32.0); MCHC 32.4 g/dL (32.0-37.0); MCV 76.1 FL (80.0-97.0); Mean Platelet Volume 8.9 FL (9.5-12.2); NRBC Per 100 WBC 0 X 10*3/uL (0.00-0.01); Platelet Count 433 X 10*3/uL (140-440); RBC 5.15 X 10*6/uL (4.10-5.20); RDW 13.8 % (11.5-14.5); WBC 9.97 X 10*3/uL (4.50-10.00)
== END | disposition home or self-care (01) ==
LOC: LABWHC1 11:59
PROVIDERS: ATTEND Internal Medicine
DX: I10 Essential (primary) hypertension (principal)
CPT/HCPCS: 36415; 80053; 82088; 83835; 84244; 85027

== ENCOUNTER → 2024-09-23 | Outpatient (CLI) | payer OTHER ==
--- NOTE | 2024-09-23 08:51 | US ---
EXAMINATION TYPE: US renal artery duplex complet DATE OF EXAM: 09/23/2024 COMPARISON: Renal ultrasound on 07/16/24 CLINICAL INDICATION: Female, 34 years old with history of I11.0 HYPERTENSIVE HEART DISEASE WITH HEART FAILUR; hypertension TECHNIQUE: Grayscale, color Doppler and spectral Doppler imaging of the bilateral renal arteries and kidneys. FINDINGS: MEASUREMENTS: RENAL SIZE: Right Kidney: 12.1 x 6.2 x 6.1cm Left Kidney: 12.6 x 5.9 x 5.9cm Right Kidney: wnl Left Kidney: wnl Abd Aorta: slightly limited due to bowel gas, appears wnl RESISTANCE INDEX Right: 0.65 Left: 0.64 RA/AO RATIO (< 3.5 ) Right: 1.1 Left: 1.2 RENAL ARTERY VELOCITY ( < 180 cm/s) Right: 151 Left: 168 Case Aide Notes: Left renal artery slightly limited. No obvious renal stenosis seen at this time. Appropriate color Doppler flow and spectral waveforms to the kidneys bilaterally. Grayscale imaging of the kidneys and show no evidence for hydronephrosis or mass. No renal calculi or cysts visualized. IMPRESSION: No evidence for renal artery stenosis bilaterally. [facility], , 09/23/2024 8:49 AM
== END | disposition home or self-care (01) ==
LOC: RADUSWWP 07:14
PROVIDERS: ATTEND Internal Medicine Interventional Cardiology
DX: I11.0 Hypertensive heart disease with heart failure (principal); G47.33 Obstructive sleep apnea (adult) (pediatric); I16.0 Hypertensive urgency
CPT/HCPCS: 93975

== ENCOUNTER → 2024-10-15 | Outpatient (CLI) | payer OTHER ==
[2024-10-15 15:00] VITALS: BP 136/81; PULSE 110; RESP 20; TEMP 98.2
--- NOTE | 2024-10-15 15:46 | P.SLEEP ---
History of Present Illness DATE: 10/15/2024 CONSULTATION/NEW PATIENT EVALUATION HISTORY OF PRESENT ILLNESS/SLEEP-WAKE EVALUATION: 34-year-old lady had been e valuated in the sleep center for possible obstructive sleep apnea hypopnea syndrome. SLEEP SCHEDULE: Usually sleep schedule from 10 PM to 6:30 AM on working days and from midnight until 7:30 AM on weekend. FALLING ASLEEP: Usually no significant problems with falling asleep. DURING SLEEP: Patient wakes up from sleep up to 5 times. Positive history of panic attacks, palpitations and nocturia. No history of hypnogogical hallucinations, sleep paralysis, or cataplexy. DURING THE DAY/WAKE STATE: Patient may feel sleepiness during the day. [place] sleepiness scale is increased to 10. Usually patient does not take naps. PAST MEDICAL HISTORY: Hypertension, anxiety, iron deficiency anemia. PAST SURGICAL HISTORY: Cholecystectomy, tubal ligation. MEDICATIONS: Please see below. SOCIAL HISTORY: Please see below. FAMILY HISTORY: Please see below. REVIEW OF SYSTEMS: Multiple awakenings from sleep, sleepiness during the day. No fevers. No double vision. No recent chest pain. No shortness of breath. No abdominal pain. No bleeding episodes. No blood in urine. No seizure episodes. PHYSICAL EXAMINATION: GENERAL: A pleasant patient without any distress. VITAL SIGNS: Please see below, weight 244.6 pounds, BMI 39.5. HEENT: PERRLA, EOMI. Evaluation of oropharynx showed tongue protrudes midline, low position of soft palate Mallampati 2, hypertrophy of tonsils 34. NECK: Supple. No JVD. Thyroid is not palpable. 17 inches in circumference. LUNGS: Clear to percussion and to auscultation. Good air exchange. No wheezing or rhonchi. HEART: S1, S2 regular. No murmurs, gallops or rubs. ABDOMEN: Soft and nontender. Bowel sounds are present. No organomegaly appreciated. EXTREMITIES: No clubbing or cyanosis. JOB SERVICE CONSULTANT: Awake, alert, and oriented x3. Cranial nerves 2 to 7 intact. There is no fasciculation or atrophy noted. No focal deficits observed. ASSESSMENT: 1. Snoring, multiple awakenings from sleep, extremely small oropharyngeal airspace secondary to significant hypertrophy of tonsils up to level 4, wide neck 17 inches in circumference, sleepiness with [place] Sleepiness Scale 10 obstructive sleep apnea hypopnea syndrome. 2. Obesity, BMI 39.5. 3. Hypertension. 4. History of iron deficiency anemia. 5 anxiety. 6 . Status post cholecystectomy. 7. Status post tubal ligation. PLAN: 1. Polysomnography for evaluation of patient's breathing during sleep. 2. Following plan after reading sleep study. 3. Preferable position during sleep on the side. 4. No driving if patient feels any sleepiness. Patient is aware of civil and criminal liability for unsafe driving. 5. Sleep hygiene with regular sleep time for at least 7.5-8 hours. 6. Watching and losing weight. Thank you very much for referring this patient for consultation. Sincerely, Daniel Campo MD, PhD, FAASM. Diplomat of [place] Board of Sleep Medicine, Sleep Medicine Board by [place] [employer]ities [place] [employer] of [employer] Medicine [facility] [place] cc: Anastasia Diaz MD Past Medical History Past Medical History: Hypertension Additional Past Medical History / Comment(s): Possible history of sleep apnea, unconfirmed, anemia, anxiety, snoring History of Any Multi-Drug Resistant Organisms: None Reported Past Surgical History: Section, Cholecystectomy Additional Past Surgical History / Comment(s): Left eye surgery as a child x2, wisdom teeth extraction age 18 Past Anesthesia/Blood Transfusion Reactions: No Reported Reaction Past Psychological History: Anxiety Smoking Status: Never smoker Past Alcohol Use History: None Reported Past Drug Use History: None Reported - Past Family History Mother History Unknown: Yes Family Medical History: Hyperlipidemia, Hypertension Additional Family Medical History / Comment(s): Depression, possibly anemia Brother(s) Additional Family Medical History / Comment(s): Restless legs Medications and Allergies Home Medications Medication Instructions Recorded Confirmed Type Ibuprofen [Motrin] 600 mg PO Q6HR PRN #20 tab 07/16/17 Rx Ferrous Sulfate [Feosol] 325 mg PO DAILY 10/15/24 10/15/24 History amLODIPine 10 mg PO DAILY 10/15/24 10/15/24 History busPIRone HCL [Buspirone HCl] 5 mg PO DAILY 10/15/24 10/15/24 History lisinopriL [Lisinopril] 10 mg PO BID 10/15/24 10/15/24 History Allergies Allergy/AdvReac Type Severity Reaction Status Date / Time No Known Allergies Allergy Verified 04/01/20 18:44 Physical Exam Vitals: Vital Signs Temp Pulse Resp BP Pulse Ox 10/15/24 15:00 98.2 F 110 H 20 136/81 97 Intake and Output 10/15/24 10/15/24 10/15/24 06:59 14:59 22:59 Other: Weight 110.847 kg Sleep Note - Sleep Data ESS Total: 10 - Sleep Note Sleep Note: Temperature: 98.2 F Pulse Rate: 110 Respiratory Rate: 20 Blood Pressure: 136/81 SpO2: 97 Height: 5 ft 6 in Weight: 110.847 kg BMI: Neck Circumference:
== END ==
LOC: 3 N SLEEP 14:23
PROVIDERS: ATTEND Internal Medicine
DX: G47.33 Obstructive sleep apnea (adult) (pediatric) (principal); E66.9 Obesity, unspecified; I10 Essential (primary) hypertension; F41.9 Anxiety disorder, unspecified; Z68.39 Body mass index [BMI] 39.0-39.9, adult; Z86.2 Personal history of diseases of the blood and blood-forming organs and certain disorders involving the immune mechanism; Z90.49 Acquired absence of other specified parts of digestive tract; Z98.51 Tubal ligation status
CPT/HCPCS: 99211